=== PATIENT | male | born 1980 | race African-American/Black ===

== ENCOUNTER 2017-04-21 18:44 | Emergency (ER) | payer MEDICAID ==
[~2017-04-21] VITALS: Ht 175.3 cm; Wt 73.2 kg
[2017-04-21] MEDS ORDERED: KETOROLAC 30MG/ML VIAL IV STA (22:18)
[2017-04-21] MEDS ORDERED: ONDANSETRON HCL 4MG/2ML VIAL IV STA (22:18)
[2017-04-21] MEDS ORDERED: SODIUM CHLORIDE 0.9% 1,000 ML IV ONE ×2 (22:18→23:28)
[2017-04-21] MEDS ORDERED: FAMOTIDINE 20MG/2ML VIAL IV STA (22:18)
[2017-04-21 22:54] LABS: HEMATOCRIT. 43.3 % (42.0-52.0); HEMOGLOBIN. 14.4 g/dL (14.0-18.0); MEAN CORPUSCULAR HEMOGLOBIN 27.1 pg (28.0-32.0); MEAN CORPUSCULAR VOLUME 81.1 fL (80.0-94.0); MEAN PLATELET VOLUME 7.6 fl (7.4-10.4); PLATELET 270 x1000/uL (130-400); RED BLOOD CELL COUNT 5.34 mill/uL (4.7-6.1); RED CELL DISTRIBUTION WIDTH 15.7 % (11.6-14.6)
[2017-04-21 22:54] LABS: CLARITY URINE CLEAR (CLEAR); COLOR URINE DARK YELLOW (YELLOW); GLUCOSE URINE NEGATIVE (NEGATIVE); KETONES URINE TRACE (NEGATIVE); LEUKOCYTE ESTERASE URINE NEGATIVE (NEGATIVE); NITRITE URINE NEGATIVE (NEGATIVE); OCCULT BLOOD URINE NEGATIVE (NEGATIVE); PH URINE 5.5 (4.5-8.0); PROTEIN URINE 1+ (NEGATIVE); SPECIFIC GRAVITY URINE 1.024 (1.005-1.030)
[2017-04-21 23:04] LABS: *AMPHETAMINES SCREEN URINE PRESUMTIVE POSITIVE (NEGATIVE); *BARBITURATES SCREEN URINE NEGATIVE (NEGATIVE); *BENZODIAZEPINES SCREEN URINE NEGATIVE (NEGATIVE); *COCAINE SCREEN URINE PRESUMTIVE POSITIVE (NEGATIVE); CANNABINOID URINE SCREEN NEGATIVE (NEGATIVE); METHADONE URINE SCREEN NEGATIVE (NEGATIVE); OPIATES URINE SCREEN NEGATIVE (NEGATIVE); PHENCYCLIDINE URINE SCREEN NEGATIVE (NEGATIVE)
[2017-04-21 23:06] LABS: CARBON DIOXIDE 28 mEq/L (21-32); CHLORIDE 102 mEq/L (98-107)
[2017-04-21 23:11] LABS: ETHANOL BLOOD 11 mg/dL
[2017-04-21 23:20] LABS: PLATELET ESTIMATE NORMAL
[2017-04-22] MEDS ORDERED: SODIUM CHLORIDE 0.9% 1,000 ML IV NR (00:27)
[2017-04-22 01:25] VITALS: BP 127/79
== END 2017-04-22 01:27 | disposition home or self-care (01) ==
LOC: ER 20:55
DX: R10.84 Generalized abdominal pain (principal); F14.10 Cocaine abuse, uncomplicated; F15.10 Other stimulant abuse, uncomplicated; R53.1 Weakness; K59.00 Constipation, unspecified; R53.83 Other fatigue; F17.210 Nicotine dependence, cigarettes, uncomplicated; E87.2 Acidosis
CPT/HCPCS: 36415; 74176; 80053; 80305; 81001; 83605; 83690; 85025; 87804; 93005; 96361; 96374; 96375; 99291; G0482; J1885; J2405; J3490; J7030

== ENCOUNTER 2017-07-31 09:48 | Emergency (ER) | payer MEDICAID ==
[~2017-07-31] VITALS: Ht 175.3 cm; Wt 73.0 kg
[2017-07-31] MEDS ORDERED: LIDOCAINE HCL 1% 20ML VIAL (Pyxis) INJ INFIL ONE (10:45)
[2017-07-31] MEDS ORDERED: CEFTRIAXONE SODIUM 250 MG/VIAL IM ONE (10:45)
[2017-07-31] MEDS ORDERED: AZITHROMYCIN 500 MG TABLET PO ONE (10:45)
[2017-07-31 11:30] LABS: CLARITY URINE CLEAR (CLEAR); COLOR URINE YELLOW (YELLOW); KETONES URINE NEGATIVE (NEGATIVE); LEUKOCYTE ESTERASE URINE NEGATIVE (NEGATIVE); NITRITE URINE NEGATIVE (NEGATIVE); OCCULT BLOOD URINE NEGATIVE (NEGATIVE); PH URINE 5.5 (4.5-8.0); PROTEIN URINE NEGATIVE (NEGATIVE); SPECIFIC GRAVITY URINE 1.021 (1.005-1.030); UROBILINOGEN URINE 0.2 E.U./dL (0.2-1.0)
[2017-07-31 12:40] VITALS: BP 122/77
[2017-08-03 10:09] LABS: CHLAMYDIA TRACHOMATIS NAA Negative (Negative); NEISSERIA GONORRHOEAE NAA Negative (Negative)
== END 2017-07-31 12:41 | disposition home or self-care (01) ==
LOC: ER 09:48
DX: Z20.2 Contact with and (suspected) exposure to infections with a predominantly sexual mode of transmission (principal); J02.9 Acute pharyngitis, unspecified; Z72.51 High risk heterosexual behavior; F17.210 Nicotine dependence, cigarettes, uncomplicated
CPT/HCPCS: 81003; 87070; 87077; 87430; 87491; 87591; 96372; 99284; J0696; J3490

== ENCOUNTER 2017-08-13 19:21 | Emergency (ER) | payer MEDICAID ==
[~2017-08-13] VITALS: Ht 175.3 cm; Wt 70.0 kg
[2017-08-14] MEDS ORDERED: CEFTRIAXONE SODIUM 250 MG/VIAL IM ONE
[2017-08-14] MEDS ORDERED: AZITHROMYCIN 500 MG TABLET PO ONE
[2017-08-14 00:10] VITALS: BP 115/72
[2017-08-14] MEDS ORDERED: LIDOCAINE HCL 1% 20ML VIAL (Pyxis) INJ INFIL ONE (00:15)
== END 2017-08-14 00:48 | disposition home or self-care (01) ==
LOC: ER 19:21
DX: R36.9 Urethral discharge, unspecified (principal); R30.0 Dysuria; Z72.51 High risk heterosexual behavior
CPT/HCPCS: 96372; 99283; J0696; J3490